=== PATIENT | male | born 1960 | race Caucasian/White ===

== ENCOUNTER 2016-09-24 20:00 | Emergency (ER) | payer MEDICAID ==
[~2016-09-24] VITALS: Ht 175.3 cm; Wt 84.1 kg
[~2016-09-24 20:00] MED LIST: CILO2.5OS OD; GABA-531 PO; LIB5 PO; OMEP20 PO
[2016-09-24] MEDS ORDERED: [UNRECOGNIZED DRUG - REMARK] OD (20:09)
[2016-09-24] MEDS ORDERED: MELA10TA4 PO (20:09)
[2016-09-24] MEDS ORDERED: ASPI81TA42 PO (20:09)
[2016-09-24 20:39] VITALS: BP 130/70
[2016-09-24] MEDS ORDERED: DiphenhydrAMINE HCL 25 MG CAPSULE PO ONE (21:30)
[2016-09-24] MEDS ORDERED: CEPHALEXIN MONOHYDRATE 500 MG CAPSULE PO ONE (21:30)
== END 2016-09-24 21:44 | disposition home or self-care (01) ==
LOC: EMS 20:03
DX: L03.011 Cellulitis of right finger (principal); F17.210 Nicotine dependence, cigarettes, uncomplicated
CPT/HCPCS: 99283